=== PATIENT | male | born 1945 | race Caucasian/White ===

== ENCOUNTER 2017-08-21 14:38 | Emergency (ER) | payer OTHER, MEDICARE ==
[~2017-08-21] VITALS: Ht 177.8 cm; Wt 79.0 kg
[~2017-08-21 14:38] MED LIST: IBUP600 PO
[2017-08-21 14:49] VITALS: BP 143/79; PULSE 78; RESP 19; TEMP 98.7; O2SAT 97
--- NOTE | 2017-08-21 15:26 | PD ---
HPI Chief Complaint: Altered Mental Status Time Seen by Provider: 15:09 Travel History International Travel<30 days: No (UNABLE TO OBTAIN) Contact w/Intl Traveler<30days: No (UNABLE TO OBTAIN) Traveled to known affect area: No (UNABLE TO OBTAIN) History of Present Illness HPI This 72-year-old male who presents to the emergency department having her [facility] had an episode of altered mental status. He was sitting on a barstool in a restaurant where he has a regular when someone went up to talk to him and he wound not talk for several minutes. Then his symptoms subsided. He did not fall off the barstool, hit his head or lose consciousness. He did not lose his bowels or bladder. This same exact thing happened to him a little over a year ago. He had an extensive evaluation in the emergency department and was observed in the hospital and everything was found to be reassuring. The patient doesn't remember any of this. He says he feels fine and he wants to go home. He says nothing is wrong with him. PFSH Past Medical History Medical History: Unable to Obtain Diminished Hearing: No Past Surgical History Surgical History: Unable to Obtain Social History Alcohol Use: No Tobacco Use: Yes (unable to obtain) Substance Use: No Allergies-Medications (Allergen,Severity, Reaction): Coded Allergies: No Known Allergies (Unverified Allergy, Unknown, 08/21/17) Unable to Assess (Unverified Allergy, Unknown, 08/21/17) Reported Meds & Prescriptions Reported Meds & Active Scripts Active Active Prescriptions or Reported Medications Unobtainable Review of Systems Except as stated in HPI: all other systems reviewed are Neg Physical Exam Narrative GENERAL:Well appearing, no acute distress SKIN: Focused skin assessment warm and dry. HEAD: Atraumatic. Normocephalic. EYES: Pupils equal and round. No injection or drainage. ENT: Moist mucous membranes NECK: Trachea midline. CARDIOVASCULAR: Regular rate and rhythm. No murmur appreciated. RESPIRATORY: Clear to auscultation. Breath sounds equal bilaterally. GASTROINTESTINAL: Abdomen soft, non-tender, nondistended. MUSCULOSKELETAL: No obvious deformities. NEUROLOGICAL: Awake and alert. No obvious cranial nerve deficits. No dysarthria or aphasia. No upper or lower extremity drift. No upper extremity ataxia. PSYCHIATRIC: Appropriate mood and affect; insight and judgment normal. Data Data Last Documented VS Vital Signs Date Time Temp Pulse Resp B/P (MAP) Pulse Ox O2 Delivery O2 Flow Rate FiO2 08/21/17 14:58 88 97 Room Air 08/21/17 14:49 98.7 19 143/79 (100) Orders Orders Ed Discharge Order (08/21/17 15:44) MDM Medical Decision Making Medical Screen Exam Complete: Yes Emergency Medical Condition: Yes Interpretation(s) Afebrile, no tachycardia, hypertensive Differential Diagnosis Stroke, seizure, transient global amnesia Narrative Course This is a 72-year-old male who presents to the emergency department having been brought from a restaurant where he was noticed to not be able to speak for several minutes. This is happened to him before. His daughter is here with him who says she's been aware of these symptoms and [facility] when he went to the neurologist at the [facility] he wouldn't comply with the EEG testing because he had to be nothing by mouth. The patient really doesn 't want to be evaluated for this. I explained to him that he could be having seizures and this could be life-threatening if not identified. I told him he shouldn't be driving. He wants to go home. Patient signed out AGAINST MEDICAL ADVICE. Scripts Unable to Obtain Active Prescriptions or Reported Meds Disposition: 07 AGAINST MEDICAL ADVICE Condition: Stable Judy Powell MD Aug 21, 2017 15:26
== END 2017-08-21 15:46 | disposition left against medical advice (07) ==
LOC: NEPE 14:38
DX: Z53.21 Procedure and treatment not carried out due to patient leaving prior to being seen by health care provider (principal); R41.82 Altered mental status, unspecified
CPT/HCPCS: 99283

== ENCOUNTER 2017-12-14 09:53 | Emergency (ER) | payer MEDICARE, OTHER ==
[~2017-12-14] VITALS: Ht 172.7 cm; Wt 72.0 kg
[2017-12-14] MEDS ORDERED: GADODIAMIDE PF 287 MG/ML 20 ML VIAL (for RAD MRI) IVCONTRAST ONE (09:54)
[2017-12-14 09:58] VITALS: BP 145/96; PULSE 110; RESP 16; TEMP 98.4; O2SAT 95
[2017-12-14] MEDS ORDERED: SODIUM CHLORIDE 0.9% FLUSH 10 ML FLUSH IV FLUSH PRN (10:15)
--- NOTE | 2017-12-14 10:35 | PD ---
HPI . Syncope Chief Complaint: Syncope/Near-Syncope Time Seen by Provider: 10:01 Travel History International Travel<30 days: No Contact w/Intl Traveler<30days: No Traveled to known affect area: No History of Present Illness HPI This patient is brought to us by [facility] following a syncopal episode. He was at his usual breakfast restaurant sitting on a stool when he suddenly lost consciousness and fell. [facility] was called. [facility] reports that he was sitting back on the stool when they arrived on the scene. They report the patient was combative in route. They were able to check her fingerstick blood sugar and found it to be normal in the 100 range. They were also able to determine that he had a normal sinus rhythm. The syncopal event was reportedly very brief. The patient is currently unable to provide any meaningful history. He states that he is not hurting anywhere and he is not having any trouble breathing. He reports no nausea or vomiting. The patient's daughter is here and states that he has had at least 2 previous similar episodes but has refused further evaluation. She states that he will be confused for about an hour and will be relatively cooperative during that hour. But, he then becomes lucid and "cantankerous." The daughter states that she has gone so far as to make him an appointment [facility] but he canceled the appointment the day of the EEG because he did not want to be NPO. The daughter reports head trauma when he was in the [employer]. [facility] Past Medical History Medical History: Unable to Obtain Diminished Hearing: No Tetanus Vaccination: Unknown Influenza Vaccination: No ?: Unknown Past Surgical History Surgical History: Unable to Obtain Social History Alcohol Use: No Tobacco Use: Yes Substance Use: No Allergies-Medications (Allergen,Severity, Reaction): Coded Allergies: No Known Allergies (Unverified Allergy, Unknown, 12/14/17) Unable to Assess (Unverified Allergy, Unknown, 12/14/17) Reported Meds & Prescriptions Reported Meds & Active Scripts Active Active Prescriptions or Reported Medications Unobtainable Review of Systems Except as stated in HPI: all other systems reviewed are Neg Physical Exam Narrative GENERAL: Awake and alert. SKIN: warm/dry. Abrasion on the dorsal aspect of the left hand. HEAD: Normocephalic. Atraumatic. EYES: Pupils equal and round. No scleral icterus. No injection or drainage. ENT: No nasal bleeding or discharge. Mucous membranes pink and moist. NECK: Trachea midline. Full range of motion without pain.. He holds his neck flexed. His daughter states that that is normal for him. CARDIOVASCULAR: Regular rate and rhythm. Heart sounds are normal. RESPIRATORY: No accessory muscle use. Clear to auscultation. Breath sounds equal bilaterally. GASTROINTESTINAL: Abdomen soft. Nontender. Bowel sounds present. Nondistended. MUSCULOSKELETAL: No obvious deformities. NEUROLOGICAL: Awake and alert. He knows where he is and who he is but is amnestic for the events surrounding the syncopal episode. No obvious cranial nerve deficits. Motor grossly within normal limits. Normal speech. PSYCHIATRIC: Appropriate mood and affect; insight and judgment normal. Data Data Last Documented VS Vital Signs Date Time Temp Pulse Resp B/P (MAP) Pulse Ox O2 Delivery O2 Flow Rate FiO2 12/14/17 11:30 85 16 118/72 (87) 97 Room Air 12/14/17 09:58 98.4 Orders Orders Electrocardiogram (12/14/17 10:13) Complete Blood Count With Diff (12/14/17 10:13) Comprehensive Metabolic Panel (12/14/17 10:13) Troponin I (12/14/17 10:13) Ecg Monitoring (12/14/17 10:13) Iv Access Insert/Monitor (12/14/17 10:13) Oximetry (12/14/17 10:13) Sodium Chloride 0.9% Flush (Ns Flush) (12/14/17 10:15) Mri Brain W&W/O Contrast (12/14/17 10:13) Labs Laboratory Tests Test 12/14/17 10:30 White Blood Count 5.5 TH/MM3 Red Blood Count 4.85 MIL/MM3 Hemoglobin 15.8 GM/DL Hematocrit 46.9 % Mean Corpuscular Volume 96.8 FL Mean Corpuscular Hemoglobin 32.6 PG Mean Corpuscular Hemoglobin Concent 33.7 % Red Cell Distribution Width 13.5 % Platelet Count 252 TH/MM3 Mean Platelet Volume 8.4 FL Neutrophils (%) (Auto) 63.6 % Lymphocytes (%) (Auto) 23.2 % Monocytes (%) (Auto) 9.8 % Eosinophils (%) (Auto) 2.8 % Basophils (%) (Auto) 0.6 % Neutrophils # (Auto) 3.5 TH/MM3 Lymphocytes # (Auto) 1.3 TH/MM3 Monocytes # (Auto) 0.5 TH/MM3 Eosinophils # (Auto) 0.2 TH/MM3 Basophils # (Auto) 0.0 TH/MM3 CBC Comment DIFF FINAL Differential Comment Blood Urea Nitrogen 14 MG/DL Creatinine 1.04 MG/DL Random Glucose 126 MG/DL Total Protein 7.9 GM/DL Albumin 3.8 GM/DL Calcium Level 9.0 MG/DL Alkaline Phosphatase 119 U/L Aspartate Amino Transf (AST/SGOT) 18 U/L Alanine Aminotransferase (ALT/SGPT) 17 U/L Total Bilirubin 0.8 MG/DL Sodium Level 140 MEQ/L Potassium Level 3.7 MEQ/L Chloride Level 105 MEQ/L Carbon Dioxide Level 26.5 MEQ/L Anion Gap 9 MEQ/L Estimat Glomerular Filtration Rate 70 ML/MIN Troponin I LESS THAN 0.02 NG/ML MDM Medical Decision Making Medical Screen Exam Complete: Yes Emergency Medical Condition: Yes Medical Record Reviewed: Yes (The patient was seen here in April 2016 and August 2017 for very similar events. In August, he declined all workup and left AMA. In April 2016, he did stay long enough to be admitted to the hospital. The plan was to obtain an MRI. He did have a CT of his head that showed an old infarct. However, he left before the MRI was obtained.) Interpretation(s) Normal sinus rhythm with no ST segment elevation or depression. Differential Diagnosis My differential diagnosis of syncope includes but is not limited to cardiac arrhythmia, hypovolemia, anemia, neurological catastrophe, vasovagal response Narrative Course This patient presents following a syncopal event. I feel that the most likely etiology for his recurrent syncopal events is seizure activity. He has a history of previous head trauma. He has had a CT in the past that shows an old stroke. On his previous admission, an MRI was planned but he left AMA before it could be done. Therefore, I will attempt to get an MRI today. CBC & BMP Diagram 12/14/17 10:30 Total Protein 7.9, Albumin 3.8, Calcium Level 9.0, Alkaline Phosphatase 119 H, Aspartate Amino Transf (AST/SGOT) 18, Alanine Aminotransferase (ALT/SGPT) 17, Total Bilirubin 0.8 trop < 0.02 MRI: 1. No hemorrhage, mass or acute infarction. 2. Encephalomalacia and gliosis involving the lower frontal lobes bilaterally. 3. Moderate atrophy. 4. Sinusitis. Admission has once again been offered but declined. I have also suggested that we start him empirically on anti-seizure medication. He declines that as well. I will have him sign out AMA. AMA: The risks of leaving against medical advice without further evaluation treatment were discussed with the patient. These risks include cardiac dysfunction, cardiac dysrhythmia, possible heart attack, possible stroke or . The patient indicated understanding of these risks and appeared to have the capacity to make this decision. Diagnosis Primary Impression: Altered mental status Qualified Codes: R40.4 - Transient alteration of awareness Scripts Unable to Obtain Active Prescriptions or Reported Meds Disposition: 07 AGAINST MEDICAL ADVICE Condition: Stable Jordana Flores MD Dec 14, 2017 10:35
[2017-12-14 11:05] LABS: AUTOMATED NEUTROPHIL # 3.5 TH/MM3 (1.8-7.7); BASOPHIL % 0.6 % (0.0-2.0); EOSINOPHIL # 0.2 TH/MM3 (0-0.4); EOSINOPHIL % 2.8 % (0.0-4.0); HEMATOCRIT 46.9 % (39.0-51.0); HEMOGLOBIN 15.8 GM/DL (13.0-17.0); LYMPH % 23.2 % (9.0-44.0); LYMPHOCYTE # 1.3 TH/MM3 (1.0-4.8); MEAN CELL VOLUME 96.8 FL (80.0-100.0); MEAN CORPUSCULAR HEMOGLOBIN 32.6 PG (27.0-34.0); MEAN CORPUSCULAR HGB CONC 33.7 % (32.0-36.0); MEAN PLATELET VOLUME 8.4 FL (7.0-11.0); MONO % 9.8 % (0.0-8.0); MONOCYTE # 0.5 TH/MM3 (0-0.9); NEUT % 63.6 % (16.0-70.0); PLATELET COUNT 252 TH/MM3 (150-450); RED BLOOD COUNT 4.85 MIL/MM3 (4.50-5.90); RED CELL DISTRIBUTION WIDTH 13.5 % (11.6-17.2); WHITE BLOOD COUNT 5.5 TH/MM3 (4.0-11.0)
[2017-12-14 11:25] LABS: ALBUMIN 3.8 GM/DL (3.4-5.0); AST (GOT) 18 U/L (15-37); BICARBONATE 26.5 MEQ/L (21.0-32.0); BLOOD UREA NITROGEN 14 MG/DL (7-18); CHLORIDE 105 MEQ/L (98-107); CREATININE 1.04 MG/DL (0.60-1.30); GLOMERULAR FILTRATION RATE 70 ML/MIN (>89); GLUCOSE,RANDOM 126 MG/DL (74-106); SODIUM (NA) 140 MEQ/L (136-145)
[2017-12-14 11:30] VITALS: BP 118/72; PULSE 85; RESP 16; O2SAT 97
[2017-12-14 11:30] LABS: ALKALINE PHOSPHATASE 119 U/L (45-117); ALT (GPT) 17 U/L (12-78); TOTAL BILIRUBIN ADULT 0.8 MG/DL (0.2-1.0); TOTAL PROTEIN 7.9 GM/DL (6.4-8.2); TROPONIN I LESS THAN 0.02 NG/ML (0.02-0.05)
--- NOTE | 2017-12-14 13:26 | RADRPT ---
EXAM DATE/TIME: 12/14/2017 12:32 [facility] COMPARISON: CT BRAIN W/O CONTRAST, May 15, 2016, 12:34. INDICATIONS : Seizures. Hx of head trauma. CONTRAST: 14 cc Omniscan (gadodiamide) IV MEDICAL HISTORY : Seizures. Hx of head trauma SURGICAL HISTORY : Left leg. ENCOUNTER: Initial ACUITY: 2 day PAIN SCORE: 0/10 LOCATION: Head TECHNIQUE: Multiplanar, multisequence MRI of the brain was performed both prior to and following the administrat ion of paramagnetic contrast. FINDINGS: CEREBRUM: There is diffuse moderate atrophic change with sulcal and ventricular prominence. Areas of chronic en cephalomalacia are noted involving both lower frontal lobes left greater than right with surrounding mild gliosis. No evidence of midline shift, mass lesion, hemorrhage or acute infarction. No extraaxi al fluid collections are seen. The pituitary gland and suprasellar cistern are normal in configurati on. WHITE MATTER: No significant signal abnormalities are seen in the white matter. POSTERIOR FOSSA: The cerebellum and brainstem are intact. The 4th ventricle is midline. The cerebellopontine angle is unremarkable. The cerebellar tonsils are normal in position. DIFFUSION IMAGING: No focal areas of restricted diffusion are seen. No evidence of acute infarction. EXTRACRANIAL: The visualized portions of the orbits are unremarkable. There is opacification of the lower left maxi llary sinus. Mucosal thickening is noted in the ethmoidal air cells. POST-CONTRAST: No abnormal areas of parenchymal or dural enhancement. No evidence of blood-brain barrier breakdown. CONCLUSION: 1. No hemorrhage, mass or acute infarction. 2. Encephalomalacia and gliosis involving the lower frontal lobes bilaterally. 3. Moderate atrophy. 4. Sinusitis. Jan Schumacher MD on December 14, 2017 at 13:20 Board Certified Radiologist. This report was verified electronically.
[2017-12-14 13:55] VITALS: BP 120/80; PULSE 82; RESP 14; O2SAT 98
--- NOTE | 2017-12-15 14:50 | EKG ---
Date Performed: 12/14/2017 Time Performed: 10:30:39 PTAGE: 72 years EKG: Sinus rhythm LOW QRS VOLTAGE IN PRECORDIAL LEADS INFERIOR MYOCARDIAL INFARCTION ABNORMAL ECG Since PREVIOUS TRACING , no significant change noted PREVIOUS TRACIN05/15/2016 12.13.24 DOCTOR: Ant Torres Interpretating Date/Time 12/17/2017 07:50:53
== END 2017-12-14 13:56 | disposition left against medical advice (07) ==
LOC: NEPC 09:53
DX: R40.4 Transient alteration of awareness (principal); R55 Syncope and collapse; J32.9 Chronic sinusitis, unspecified; Z72.0 Tobacco use
CPT/HCPCS: 70553; 80053; 84484; 85025; 93005; 99285; A9579